=== PATIENT | female | born 1990 | race Caucasian/White ===

== ENCOUNTER 2017-12-06 10:36 | Emergency (ER) | payer MEDICAID ==
[2017-12-06 10:36] VITALS: BMI 33.5
[2017-12-06 10:50] VITALS: BP 136/85; TEMP 98.8; O2SAT 98
--- NOTE | 2017-12-06 12:57 | C.PDOC ---
History Of Present Illness 27 y/o female presents to the ER complaining of right sided chest pain which has been present for the past 2 days. Patient describes the pain as sharp and states that the pain is worse with movement. Patient denies having trauma, injuries, and hx of DVT/PE. Time Seen by Provider: 12/06/17 11:26 Chief Complaint (Nursing): Chest Pain History Per: Patient History/Exam Limitations: no limitations Onset/Duration Of Symptoms: Days Current Symptoms Are (Timing): Still Present Severity: Moderate Quality: Sharp Exacerbating Factors: Movement Past Medical History Reviewed: Historical Data, Nursing Documentation, Vital Signs Vital Signs: Last Vital Signs Temp 98.8 F 12/06/17 13:09 Pulse 76 12/06/17 13:09 Resp 20 12/06/17 13:09 BP 136/85 12/06/17 13:09 Pulse Ox 98 12/06/17 13:16 - Medical History PMH: No Chronic Diseases Surgical History: - [facility] APPLICATION OF SPLINT (01/16/13) MONITORING NOS (02/25/15) Family History: States: No Known Family Hx - Social History Hx Alcohol Use: No Hx Substance Use: No Review Of Systems Except As Marked, All Systems Reviewed And Found Negative. Constitutional: Negative for: Fever, Chills Cardiovascular: Positive for: Chest Pain Respiratory: Negative for: Cough, Shortness of Breath Physical Exam - Physical Exam Appears: Non-toxic, No Acute Distress Skin: Normal Color, Warm, Dry Head: Atraumatic, Normacephalic Eye(s): bilateral: Normal Inspection Nose: Normal Oral Mucosa: Moist Neck: Supple Chest: Symmetrical, Tenderness (reproducible chest wall tenderness to anterior aspect of right chest wall), Other ((-) rash) Cardiovascular: Rhythm Regular Respiratory: Normal Breath Sounds, No Rales, No Rhonchi, No Wheezing Gastrointestinal/Abdominal: Normal Exam, Soft, No Tenderness, No Guarding, No Rebound Neurological/Psych: Oriented x3, Normal Speech ED Course And Treatment ECG: Interpreted By Me, Viewed By Me ECG Rhythm: Sinus Rhythm Interpretation Of ECG: NSR with normal intervals, normal axises, and no ST/ T wave abnormalities Rate From EC O2 Sat by Pulse Oximetry: 98 (RA) Pulse Ox Interpretation: Normal - Radiology CXR: Interpreted by Me, Viewed By Me CXR Interpretation: Yes: No Acute Disease Medical Decision Making Medical Decision Making: Assessment: chest wall pain Plan: --ECG --CXR --Motrin PO Updates: patient states improvement. Pain medication given. Patient discharged home to follow up with pmd in 2 days. Disposition Counseled Patient/Family Regarding: Studies Performed, Diagnosis, Need For Followup, Rx Given - Disposition Referrals: Shaik Mendoza MD [Staff Provider] - Disposition: HOME/ ROUTINE Disposition Time: 12:55 Condition: STABLE Additional Instructions: follow up with your doctor within 2 days call to make an appointment take medication as needed for pain return to ER if symptoms worsens or progress Prescriptions: Naproxen [Naprosyn] 500 mg PO BID PRN #16 tab PRN Reason: Pain, Moderate (4-7) Instructions: Costochondritis (DC) Forms: General Discharge Instructions, [facility] ([place]), Work Excuse - Clinical Impression Clinical Impression: Chest wall pain - Scribe Statement The provider has reviewed the documentation as recorded by the Victor Manuel Granados Provider Attestation: All medical record entries made by the Victor Manuel were at my direction and personally dictated by me. I have reviewed the chart and agree that the record accurately reflects my personal performance of the history, physical exam, medical decision making, and the department course for this patient. I have also personally directed, reviewed, and agree with the discharge instructions and disposition.
[2017-12-06 13:11] VITALS: PULSE 76; RESP 20
--- NOTE | 2017-12-07 23:45 | CARD ---
APPROVED REPORT EKG Measurement Heart [id number] <Conclusion> Normal sinus rhythm Normal ECG
== END 2017-12-06 13:09 | disposition home or self-care (01) ==
LOC: C.ER 10:36
DX: R07.89 Other chest pain (principal)